=== PATIENT | female | born 1990 | race Caucasian/White ===

== ENCOUNTER 2024-10-17 20:47 | Emergency (ER) | payer OTHER ==
[~2024-10-17] VITALS: Ht 180.3 cm; Wt 72.6 kg
[2024-10-17 22:43] LABS: BASOPHILS % (AUTO) 0.5 % (0.0-2.0); EOSINOPHILS # (AUTO) 0.1 K/uL (0.0-0.7); EOSINOPHILS % (AUTO) 0.9 % (0.0-6.0); HEMATOCRIT 41 % (33-45); HEMOGLOBIN 13.9 g/dL (11.5-14.8); LYMPHOCYTES % (AUTO) 29.1 % (20.0-44.0); MEAN CORPUSCULAR HEMOGLOBIN 31 PG (26.0-33.0); MEAN CORPUSCULAR HGB CONC 34 g/dl (31.0-36.0); MEAN CORPUSCULAR VOLUME 90 fL (82-100); MONOCYTES # (AUTO) 0.6 K/uL (0.1-1.30); MONOCYTES % (AUTO) 9.2 % (2.0-12.0); NEUTROPHILS # (AUTO) 4.2 K/uL (1.8-8.9); NEUTROPHILS % (AUTO) 60.3 % (43.0-81.0); PLATELET COUNT (AUTO) 226 K/uL (150-450); RED BLOOD CELL COUNT(AUTO) 4.48 MIL/uL (4.0-5.2); RED CELL DISTRIBUTION WIDTH 13.3 % (11.5-15.0)
[2024-10-17 22:50] LABS: CALCIUM, SERUM 9.4 mg/dL (8.5-10.1); CARBON DIOXIDE 23 mmol/L (21-32); CHLORIDE 101 mmol/L (98-107); CREATININE 0.9 mg/dL (0.6-1.3); GLUCOSE 111 mg/dL (74-106); POTASSIUM 3.6 mmol/L (3.5-5.1); SODIUM SERUM 135 mmol/L (136-145); UREA NITROGEN, BLOOD 12 mg/dL (7-18)
[2024-10-17 23:11] LABS: THYROID STIMULATING HORMONE 7.31 uIU/mL (0.358-3.74)
[2024-10-17 23:57] LABS: PREGNANCY TEST URINE QUAL NEGATIVE (NEGATIVE)
[2024-10-18 00:01] LABS: AMPHETAMINE, URINE NEGATIVE (NEGATIVE); BARBITURATE, URINE NEGATIVE (NEGATIVE); BENZODIAZEPINE, URINE NEGATIVE (NEGATIVE); CANNABINOID, URINE NEGATIVE (NEGATIVE); COCCAINE, URINE NEGATIVE (NEGATIVE); OPIATE, URINE NEGATIVE (NEGATIVE); PHENCYCLIDINE SCREEN,URINE NEGATIVE (NEGATIVE)
[2024-10-18 00:20] VITALS: BP 144/85; TEMP 97.8; O2SAT 100
== END 2024-10-18 00:21 | disposition home or self-care (01) ==
LOC: ER 20:51
DX: R55 Syncope and collapse (principal); R00.2 Palpitations; Z79.899 Other long term (current) drug therapy
CPT/HCPCS: 36415; 71045-TC; 80048-TC; 83735-TC; 83880; 84439-TC; 84443-TC; 84484-TC; 84703-TC; 85025-TC